=== PATIENT | male | born 1965 | race Caucasian/White ===

== ENCOUNTER 2016-08-27 14:41 | Emergency (ER) | payer MEDICAID ==
[~2016-08-27] VITALS: Ht 170.2 cm; Wt 56.7 kg
[~2016-08-27 14:41] MED LIST: ONDA4TAB7 PO
[2016-08-27 15:02] VITALS: BP 109/75
[2016-08-27] MEDS ORDERED: PIPERONYL BUTOXIDE/PYRETHRINS SHAMPOO ONE (16:16)
[2016-08-27] MEDS ORDERED: PIPERONYL BUTOXIDE/PYRETHRINS SHAMPOO TP SCH (16:30)
[2016-08-27] MEDS ORDERED: PERMETHRIN CRM 5%, 60GM ONE (16:30)
[2016-08-27] MEDS ORDERED: PERMETHRIN CRM 5%, 60GM TP ONE (17:00)
== END 2016-08-27 17:13 | disposition home or self-care (01) ==
LOC: ED 17:07
DX: N30.00 Acute cystitis without hematuria (principal); K59.00 Constipation, unspecified; B85.1 Pediculosis due to Pediculus humanus corporis; Z88.0 Allergy status to penicillin
CPT/HCPCS: 74000; 81001; 87086; 99285; Q0177

== ENCOUNTER 2017-02-23 17:21 | Inpatient (IN) | payer MEDICAID ==
[~2017-02-23] VITALS: Ht 167.6 cm; Wt 67.8 kg
[2017-02-23] MEDS ORDERED: CEFTRIAXONE 1,000 MG IM ONE (19:00)
[2017-02-23] MEDS ORDERED: CEFTRIAXONE 1,000 MG ONE (19:04)
[2017-02-23] MEDS ORDERED: SODIUM CHLORIDE 0.9% 1,000ML IVBOLUS ONE ×2 (19:30→20:00)
[2017-02-23 19:33] LABS: HEMATOCRIT 43.7 % (39.2-51.8); HEMOGLOBIN 14.7 g/dL (13.7-18.0); WHITE BLOOD COUNT 26.2 x10^3/uL (3.4-10)
[2017-02-23 19:45] LABS: BLOOD UREA NITROGEN 15 mg/dL (7-18)
[2017-02-23 20:14] LABS: DIFF TOTAL CELLS COUNTED 100 CELL DIFF
[2017-02-23 20:16] LABS: VERIFY COUNTS? YES
[2017-02-23] MEDS ORDERED: AZITHROMYCIN 500 MG in SODIUM CHLORIDE 0.9% 250 ML IV ONE (20:30)
[2017-02-23] MEDS ORDERED: LEVOFLOXACIN/PMX 500MG/100ML 100 ML ONE (21:07)
[2017-02-23] MEDS ORDERED: SODIUM CHLORIDE 0.9% 1,000 ML IV ONE (21:17)
[2017-02-23] MEDS ORDERED: LEVOFLOXACIN/PMX 500MG/100ML 100 ML IV ONE (21:30)
[2017-02-23] MEDS ORDERED: ONDANSETRON 2MG/ML, 2ML IVPush PRN (21:30)
[2017-02-23] MEDS ORDERED: ONDANSETRON ODT 4 MG PO PRN (22:00)
[2017-02-23] MEDS ORDERED: GUAIFENESIN/DM 200-20MG, 10ML UDC PO PRN (22:00)
[2017-02-23] MEDS ORDERED: TEMAZEPAM 15 MG CAPSULE PO PRN (22:00)
[2017-02-23] MEDS ORDERED: DOCUSATE 100 MG CAPSULE PO PRN (22:00)
[2017-02-23] MEDS ORDERED: PERMETHRIN CRM 5%, 60GM TP ONE (22:30)
[2017-02-23 23:18] VITALS: BP 118/74
[2017-02-24] MEDS: SODIUM CHLORIDE 0.9% 1,000 ML IV SCH ×3 (00:08→18:20)
[2017-02-24] MEDS: methylPREDNISolone SOD SUCC 40 MG/ML IVPush SCH ×5 (00:09→21:05)
[2017-02-24] MEDS: ENOXAPARIN 40 MG/0.4 ML SQ SCH ×2 (00:09→21:05)
[2017-02-24] MEDS: NICOTINE 21 MG/24 HR PATCH.TD24 TD SCH ×2 (00:09→21:05)
[2017-02-24 01:50] VITALS: BP 133/76
[2017-02-24 05:37] LABS: HEMATOCRIT 37.4 % (39.2-51.8); HEMOGLOBIN 12.8 g/dL (13.7-18.0); WHITE BLOOD COUNT 19.3 x10^3/uL (3.4-10)
[2017-02-24 05:46] LABS: BLOOD UREA NITROGEN 17 mg/dL (7-18)
[2017-02-24 06:06] LABS: DIFF TOTAL CELLS COUNTED 100 CELL DIFF
[2017-02-24 06:08] LABS: VERIFY COUNTS? YES
[2017-02-24] MEDS: ACETAMINOPHEN 325 MG TABLET PO PRN ×3 (06:32→16:47)
[2017-02-24 07:02] VITALS: BP 121/75
[2017-02-24] MEDS: CEFTRIAXONE PMX 1GM/50ML 50 ML IV SCH (09:00)
[2017-02-24] MEDS: AZITHROMYCIN 500 MG in SODIUM CHLORIDE 0.9% 250 ML IV SCH (09:48)
[2017-02-24 15:50] VITALS: BP 122/84
[2017-02-24] MEDS: GUAIFENESIN 200 MG TABLET PO SCH ×2 (16:27→21:05)
[2017-02-24 19:39] VITALS: BP 133/89
[2017-02-25] MEDS: SODIUM CHLORIDE 0.9% 1,000 ML IV SCH ×3 (02:50→21:53)
[2017-02-25 02:51] VITALS: BP 111/71
[2017-02-25] MEDS: methylPREDNISolone SOD SUCC 40 MG/ML IVPush SCH ×3 (04:38→22:13)
[2017-02-25] MEDS: GUAIFENESIN 200 MG TABLET PO SCH ×5 (05:41→22:13)
[2017-02-25 06:01] LABS: HEMATOCRIT 37.7 % (39.2-51.8); HEMOGLOBIN 12.6 g/dL (13.7-18.0); WHITE BLOOD COUNT 16.6 x10^3/uL (3.4-10)
[2017-02-25 06:05] LABS: BLOOD UREA NITROGEN 13 mg/dL (7-18)
[2017-02-25] MEDS: CEFTRIAXONE PMX 1GM/50ML 50 ML IV SCH (09:25)
[2017-02-25 09:36] VITALS: BP 113/67
[2017-02-25] MEDS: AZITHROMYCIN 500 MG in SODIUM CHLORIDE 0.9% 250 ML IV SCH (11:19)
[2017-02-25] MEDS ORDERED: KETOROLAC 30 MG/1 ML IVPush PRN (12:00)
[2017-02-25] MEDS ORDERED: GUAIFENESIN/COD200MG-20MG/10ML LIQUID PO PRN (12:00)
[2017-02-25 12:25] VITALS: BP 122/76
[2017-02-25] MEDS: BENZONATATE 100 MG CAPSULE PO SCH ×4 (13:11→22:13)
[2017-02-25 17:32] VITALS: BP 116/76
[2017-02-25 18:30] VITALS: BP 130/86
[2017-02-25] MEDS: NICOTINE 21 MG/24 HR PATCH.TD24 TD SCH (22:12)
[2017-02-25] MEDS: ENOXAPARIN 40 MG/0.4 ML SQ SCH (22:13)
[2017-02-26 02:06] VITALS: BP 130/91
[2017-02-26] MEDS: SODIUM CHLORIDE 0.9% 1,000 ML IV SCH ×2 (02:06→15:47)
[2017-02-26] MEDS: GUAIFENESIN 200 MG TABLET PO SCH ×2 (06:00→11:37)
[2017-02-26 06:26] LABS: HEMATOCRIT 37.9 % (39.2-51.8); HEMOGLOBIN 12.9 g/dL (13.7-18.0); WHITE BLOOD COUNT 18.4 x10^3/uL (3.4-10)
[2017-02-26 06:47] LABS: BLOOD UREA NITROGEN 18 mg/dL (7-18)
[2017-02-26] MEDS: BENZONATATE 100 MG CAPSULE PO SCH (08:28)
[2017-02-26] MEDS: methylPREDNISolone SOD SUCC 40 MG/ML IVPush SCH ×2 (08:28→21:10)
[2017-02-26] MEDS: CEFTRIAXONE PMX 1GM/50ML 50 ML IV SCH (08:28)
[2017-02-26 08:40] VITALS: BP 130/95
[2017-02-26] MEDS ORDERED: GUAIFENESIN/DM 200-20MG, 10ML UDC PO SCH (11:00)
[2017-02-26] MEDS: GUAIFENESIN/DM 200-20MG, 10ML UDC PO SCH ×3 (11:37→23:25)
[2017-02-26] MEDS ORDERED: GUAIFENESIN/DM 200-20MG, 10ML UDC PO PRN (12:00)
[2017-02-26 14:10] VITALS: BP 125/79
[2017-02-26] MEDS: ACETAMINOPHEN 325 MG TABLET PO PRN (21:10)
[2017-02-26] MEDS: ENOXAPARIN 40 MG/0.4 ML SQ SCH (21:11)
[2017-02-26] MEDS: NICOTINE 21 MG/24 HR PATCH.TD24 TD SCH (21:13)
[2017-02-26 21:26] VITALS: BP 128/75
[2017-02-27 02:00] VITALS: BP 137/89
[2017-02-27] MEDS: ACETAMINOPHEN 325 MG TABLET PO PRN ×2 (03:24→15:54)
[2017-02-27] MEDS: SODIUM CHLORIDE 0.9% 1,000 ML IV SCH ×2 (05:16→17:29)
[2017-02-27 05:18] LABS: HEMATOCRIT 40.5 % (39.2-51.8); HEMOGLOBIN 13.8 g/dL (13.7-18.0); WHITE BLOOD COUNT 12.5 x10^3/uL (3.4-10)
[2017-02-27] MEDS: GUAIFENESIN/DM 200-20MG, 10ML UDC PO SCH ×3 (05:19→17:01)
[2017-02-27] MEDS: CEFTRIAXONE PMX 1GM/50ML 50 ML IV SCH (07:56)
[2017-02-27] MEDS: methylPREDNISolone SOD SUCC 40 MG/ML IVPush SCH (07:56)
[2017-02-27 08:00] VITALS: BP 127/89
[2017-02-27] MEDS ORDERED: AZITHROMYCIN 500 MG TABLET PO SCH (09:00)
[2017-02-27 15:04] VITALS: BP 138/95
[2017-02-27] MEDS ORDERED: AZIT500T5 PO (15:56)
[2017-02-27] MEDS ORDERED: PRED20TA PO (15:56)
[2017-02-27] MEDS ORDERED: CEFD300C37 PO (15:56)
[2017-02-27] MEDS ORDERED: PERM60CR17 TP (16:13)
== END 2017-02-27 18:18 | disposition home or self-care (01) | DRG 871 ==
LOC: ED 19:38 → EDIP 21:17 → 4WST 23:01
PROVIDERS: ADMIT Family Medicine; ATTEND Family Medicine
DX: A41.9 Sepsis, unspecified organism (principal); J15.9 Unspecified bacterial pneumonia; B86 Scabies; F17.200 Nicotine dependence, unspecified, uncomplicated; J45.909 Unspecified asthma, uncomplicated; L29.9 Pruritus, unspecified; Z88.0 Allergy status to penicillin; Z59.0 Homelessness; Z82.49 Family history of ischemic heart disease and other diseases of the circulatory system
CPT/HCPCS: 36415; 71020; 80048; 82040; 83605; 84145; 85025; 87040; 87070; 87205; 87324; 96361; 96365; 96372; J0456; J0696; J1650; J1956; J2920; J7030; J7050